=== PATIENT | male | born 1965 | race Caucasian/White ===

== ENCOUNTER 2016-04-07 11:40 | Emergency (ER) | payer OTHER ==
[~2016-04-07] VITALS: Ht 180.3 cm; Wt 108.9 kg
[~2016-04-07 11:40] MED LIST: ALBUTEROL0.09 MG/A2 IH; Albuterol Sulfat3 M1 NEB; BENADRYL50 MG PO; CORDROL20 MG PO; CYCLOBENZAPRINE5 M3 PO; DELTASONE10 MG PO; DULE1ARO1 INH; FLEXERIL10 MG PO; HYDROCODONE BIT1 T11 PO; HYDROXYZINE PAM50 MG PO; LAMICTAL25 MG PO; LAMISIL250 MG PO; LOFIBRA134 MG PO; LOPID600 MG PO; MEDROL DOSEPAK4 MG PO; Motrin,Rufen800 MG PO; NKHM PO; ONDANSETRON HYDR4 M1 PO; PREDNISONE10 MG PO; PRILOSEC20 MG PO; REMERON15 MG PO; ROBITUSSIN AC 110 ML PO; SEROQUEL400 MG PO; SPIRIVA18 MCG PO; SYMBICORT1 AE1 INH; THERA VITE M1 TAB PO; TRAZODONE HCL50 MG PO; VIBRAMYCIN100 MG PO; VICO10300 PO; ZITHROMAX TRI-500 MG PO; ZITHROMAX250 MG PO; ZYRTEC-D 5 MG-11 TE1 PO; ZYRTEC10 MG PO
[2016-04-07 11:59] VITALS: BP 118/83
[2016-04-07] MEDS ORDERED: PREDNISONE10 MG PO (13:49)
[2016-04-07] MEDS ORDERED: VIBRAMYCIN100 MG PO (13:49)
[2016-06-02] MEDS ORDERED: DOXYCYCLINE100 M3 PO (18:11)
[2016-06-02] MEDS ORDERED: PREDNISONE10 MG PO (18:11)
== END 2016-04-07 14:01 | disposition home or self-care (01) ==
LOC: ED 11:40
DX: J20.9 Acute bronchitis, unspecified (principal); F17.200 Nicotine dependence, unspecified, uncomplicated; Z88.0 Allergy status to penicillin

== ENCOUNTER → 2016-04-10 | Outpatient (CLI) | payer OTHER ==
[~2016-04-10] MED LIST changes: +DOXYCYCLINE100 M3 PO
== END ==
LOC: RAD 11:06
DX: J40 Bronchitis, not specified as acute or chronic (principal); R91.1 Solitary pulmonary nodule; Z72.0 Tobacco use

== ENCOUNTER 2016-11-06 20:30 | Emergency (ER) | payer OTHER ==
[~2016-11-06] VITALS: Ht 180.3 cm; Wt 117.9 kg
[2016-11-06 20:49] VITALS: BP 156/93
[2016-11-06] MEDS ORDERED: CLINDAMYCIN HC300 MG PO (21:05)
[2016-11-06] MEDS ORDERED: HYDROCODONE BIT1 T11 PO (21:05)
== END 2016-11-06 21:26 | disposition home or self-care (01) ==
LOC: ED 20:30
DX: T23.241A Burn of second degree of multiple right fingers (nail), including thumb, initial encounter (principal); L03.011 Cellulitis of right finger; F17.200 Nicotine dependence, unspecified, uncomplicated; Z88.0 Allergy status to penicillin; X16.XXXA Contact with hot heating appliances, radiators and pipes, initial encounter; Y93.89 Activity, other specified; Y92.69 Other specified industrial and construction area as the place of occurrence of the external cause; Y99.9 Unspecified external cause status

== ENCOUNTER → 2016-11-12 | Outpatient (CLI) | payer OTHER ==
[~2016-11-12] MED LIST changes: +CLINDAMYCIN HC300 MG PO
--- NOTE | ~2016-11-12 | WRIGHTHP ---
[place], [place] PATIENT HISTORY AND PHYSICAL EXAM NAME: RADHA HARGROVE [facility] WITH [facility] #: [id number] UNIT #: [id number] ROOM: DOCTOR: AIDA VIVAS M.D. BIRTHDATE: [birth year] DOS: 11/12/2016 CHIEF COMPLAINT: Burn to his right thumb and right first finger. HISTORY OF PRESENT ILLNESS: This is a 51-year-old male with really no past medical history who comes in with a burn that he sustained approximately 2 weeks ago. He had sustained a burn on his right thumb and his pointer finger of the right hand while he was at work. He burned it by hot steam and apparently was just taking care of it at home by himself for about a week until he came to the ER on 11/06/2016 with reports of yellow drainage and nonhealing and was given clindamycin and a script for Silvadene which he has been using. The wound still has not really gotten any better, in fact he says it is still draining. There is still pain and discomfort. There is an area on the first finger, the pointer finger, of the right hand that had a blister, but it is draining yellowish fluid coming from there according to his . Also, his did state that initially the wounds were blistered and he broke the blisters on his own and was caring for it at home before he sought medical attention. He says he is doing okay with the antibiotics. No fevers or chills are noted at this time. PAST MEDICAL HISTORY: Significant for a history of pneumonia and left wrist surgery. He is not diabetic. FAMILY HISTORY: Significant for heart disease. SOCIAL HISTORY: He is a current every day smoker, 1 pack per day and is . He works with the [employer] and was in [place] when this injury occurred. He does not drink alcohol or use drugs. ALLERGIES: HE IS ALLERGIC TO PENICILLIN. CURRENT MEDICATIONS: He is on 7 days' worth of oral clindamycin, and he was given 8 pills of hydrocodone from the Emergency Room Department. REVIEW OF SYSTEMS: No fevers or chills. He continues to have drainage. He states he thinks it looks worse than it did. It is still painful. No chest pain, shortness of breath, nausea, vomiting or diarrhea or problems with the antibiotics that he reports. PHYSICAL EXAMINATION: GENERAL: This is a well-developed, well-nourished male, in no acute distress, pleasant and cooperative. HEENT: Extraocular movements are intact. Sclerae are anicteric. NECK: There is no JVD. LUNGS: Clear. CARDIOVASCULAR: S1, S2 regular rate and rhythm. ABDOMEN: Soft and nontender. EXTREMITIES: No edema. He has his two wounds. There is a large wound on the right thumb that is measuring approximately 2.8 x 1.5 x 0.1. There is a large amount of necrotic tissue present around this wound. There is no overt cellulitis that I could see. The wound on the pointer finger of the right hand [place], [place] PATIENT HISTORY AND PHYSICAL EXAM NAME: RADHA HARGROVE UNIT #: [id number] ROOM: DOCTOR: AIDA VIVAS M.D. BIRTHDATE: [birth year] is measuring 1.3 x 0.8 x 0.1. It is a blister, but it is fluctuant and draining yellowish fluid. Debridement was done, burn debridement of both of these wounds. The tissue removed was devitalized tissue with forceps and scissors. Cetacaine spray was used for topical anesthesia. Timeout was conducted prior to the start of the procedure. The patient tolerated the procedure well. Post-debridement measurements, both the wounds are slightly different, 3.6 x 2 x 0.2 in the thumb area, the other wound is measuring 0.8 x 0.6 x 0.1. ASSESSMENT AND PLAN: Second-degree garcia of both the thumb and the first digit on the right hand. I would like to change from Silvadene to TheraHoney and apply Bactroban to the regimen as well, Adaptic to keep it from sticking to the wound, 4 x 4s and Kerlix or Darci to the wounds. He is to change it every day. I want to add Bactrim double strength 1 tablet p.o. b.i.d. as well. THE PATIENT IS ALLERGIC TO PENICILLIN. The patient is going to change dressings every day and follow back up with us in one week. AIDA BEIS, MD CM:HISPHYS:PATIENT HISTORY AND PHYSICAL EXAMINATION [id number] AIDA VIVAS M.D. 11/12/16 1120 interface
== END ==
LOC: WOUNDCARE 02:58
DX: T23.241A Burn of second degree of multiple right fingers (nail), including thumb, initial encounter (principal); T31.0 Burns involving less than 10% of body surface; Z87.01 Personal history of pneumonia (recurrent); F17.210 Nicotine dependence, cigarettes, uncomplicated; X08.8XXA Exposure to other specified smoke, fire and flames, initial encounter; Y93.89 Activity, other specified; Y92.89 Other specified places as the place of occurrence of the external cause; Y99.8 Other external cause status

== ENCOUNTER → 2016-11-19 | Outpatient (CLI) | payer OTHER ==
--- NOTE | ~2016-11-19 | PR ---
[place], [place] PROGRESS NOTE NAME: RADHA HARGROVE [facility] #: [id number] UNIT #: [id number] ROOM: DOCTOR: AIDA VIVAS M.D. BIRTHDATE: [birth year] DOS: 11/19/2016 CHIEF COMPLAINT: Follow up of burn to the right hand. HISTORY OF PRESENT ILLNESS: This is a 51-year-old male who was seen in the Wound Clinic last week for a burn of his right hand. He had a fairly large burn of his thumb as well as his second digit. He comes in without any specific complaints. He has been using TheraHoney and Adaptic without any particular new changes. There is very little drainage and no fevers or chills. The wound is still painful. PHYSICAL EXAMINATION: His vital are stable. Temperature 98.4, pulse 80, respirations 18, blood pressure is 130/86. The wound on the right thumb is measuring 3.3 x 1.2 x 0.1. It looks clean. There is much less devitalized tissue. There is a little bit of eschar still present at the tip of the wound, the tip of the forefinger, but otherwise it looks pretty good. No overt cellulitis. HOSPITAL COURSE: The area was debrided selectively with forceps and scissors just to remove the devitalized eschar. The patient tolerated the debridement well, only 5-10% of the wound was debrided. No bleeding occurred. Post-debridement measurements are 3.3 x 1.3 x 0.1. The other wound is healing nicely and is measuring 0.5 x 0.5 x 0.1. ASSESSMENT AND PLAN: Second-degree burn of the right hand, which looks good. There has not been much improvement in the wound margins yet, but it does look much body cleaner in general. Hopefully, by next week, we can change him to a different dressing such as collagen or Aquacel. Follow up in one week. AIDA VIVAS MD CM:PNTRANS [id number] AIDA VIVAS M.D. 11/19/16 2244 interface
== END | disposition home or self-care (01) ==
LOC: WOUNDCARE 03:11
DX: T23.241D Burn of second degree of multiple right fingers (nail), including thumb, subsequent encounter (principal); X08.8XXD Exposure to other specified smoke, fire and flames, subsequent encounter

== ENCOUNTER → 2016-11-26 | Outpatient (CLI) | payer OTHER ==
--- NOTE | ~2016-11-26 | PR ---
[place], [place] PROGRESS NOTE NAME: RADHA HARGROVE [facility] #: [id number] UNIT #: [id number] ROOM: DOCTOR: AIDA VIVAS M.D. BIRTHDATE: [birth year] DOS: 11/26/2016 CHIEF COMPLAINT: Follow up of burn to the right hand. HISTORY OF PRESENT ILLNESS: This is a 51-year-old male who suffered a second-degree burn of his right thumb. He has been coming to the wound clinic now for 2 weeks. He is using TheraHoney and Adaptic without any particular complaints. He says it still does hurt and still causing some tightness with trying to bend the finger. PHYSICAL EXAMINATION: VITAL SIGNS: Temperature is 98.2, pulse is 80, respirations 18, blood pressure is 142/80. SKIN: There is good granulation tissue. There is some fibrin slough present in the base of the wound. The darshan-wound has some hyperkeratotic dried devitalized tissue from the garcia still present. This area was debrided selectively with forceps and scissors. There was some moderate bleeding that was controlled with pressure and a curette was also utilized. The post-debridement measurements are the same, 3 x 1.2 x 0.1; predebridement measurements were 3 x 1.2 x 0.1. The patient tolerated the debridement well. ASSESSMENT AND PLAN: Second-degree burn of the right thumb. Overall, it looks much improved. We will continue with the current dressing and have him follow up in one week. There is no sign of infection. AIDA VIVAS MD CM:PNTRANS [phone] AIDA VIVAS M.D. 11/27/16 0057 interface
== END | disposition home or self-care (01) ==
LOC: WOUNDCARE 03:05
DX: T23.211D Burn of second degree of right thumb (nail), subsequent encounter (principal); T31.0 Burns involving less than 10% of body surface; X08.8XXD Exposure to other specified smoke, fire and flames, subsequent encounter

== ENCOUNTER → 2016-12-03 | Outpatient (CLI) | payer OTHER ==
--- NOTE | ~2016-12-03 | PR ---
[place], [place] PROGRESS NOTE NAME: RADHA HARGROVE [facility] #: [id number] UNIT #: [id number] ROOM: DOCTOR: AIDA VIVAS M.D. BIRTHDATE: [birth year] DOS: 12/03/2016 WOUND CARE PROGRESS NOTE CHIEF COMPLAINT: Followup of burn of the right hand. SUBJECTIVE: This is a 51-year-old male who has been following up in the Wound Clinic for 3 weeks now for a burn of his right hand affecting the thumb and the second digit. He has been using TheraHoney and Adaptic without any new changes. He says there is very little drainage and the wound is getting smaller. He has no specific complaints. OBJECTIVE: VITAL SIGNS: Stable. Temperature is 98.4, pulse is 84, respirations are 18, blood pressure is 148/80. The wound is measuring much smaller at 0.2 x 0.2 x 0.1, it is healing nicely. There is still a little bit of devitalized tissue notable. This area was debrided with a curette and selective debridement only. There was minimal bleeding that was controlled with pressure. Cetacaine spray was used for topical anesthesia and the post-debridement measurements are 0.6 x 0.3 x 0.1. ASSESSMENT AND PLAN: Second-degree burn of the right hand, it is definitely improving with the current treatment. We will continue with this for now and have him followup in one week, this wound should be healed by then. AIDA VIVAS MD CM:ORION [id number] AIDA VIVAS M.D. 12/04/16 1333 interface
== END | disposition home or self-care (01) ==
LOC: WOUNDCARE 03:44
DX: T23.241D Burn of second degree of multiple right fingers (nail), including thumb, subsequent encounter (principal); T31.0 Burns involving less than 10% of body surface; X08.8XXD Exposure to other specified smoke, fire and flames, subsequent encounter

== ENCOUNTER 2018-10-28 22:00 | Emergency (ER) | payer SELFPAY ==
[~2018-10-28] VITALS: Ht 180.3 cm; Wt 108.9 kg
[2018-10-28 22:03] VITALS: BP 132/80
[2018-10-28] MEDS ORDERED: DOXYCYCLINE100 M3 PO (22:40)
== END 2018-10-28 23:36 | disposition home or self-care (01) ==
LOC: ED 22:00
DX: S80.261A Insect bite (nonvenomous), right knee, initial encounter (principal); S80.862A Insect bite (nonvenomous), left lower leg, initial encounter; S80.861A Insect bite (nonvenomous), right lower leg, initial encounter; Z88.0 Allergy status to penicillin; W57.XXXA Bitten or stung by nonvenomous insect and other nonvenomous arthropods, initial encounter; Y93.89 Activity, other specified; Y92.89 Other specified places as the place of occurrence of the external cause; Y99.8 Other external cause status

== ENCOUNTER 2019-10-28 15:26 | Inpatient (IN) | payer OTHER ==
[~2019-10-28] VITALS: Ht 180.3 cm; Wt 113.9 kg
[2019-10-28 15:34] VITALS: BP 106/81
[2019-10-28 16:36] LABS: HEMATOCRIT 38.7 % (42.0-52.0); MEAN CELL VOLUME 87.6 fl (80.0-94.0); MEAN CORPUSCULAR HGB 28.5 pg (27.0-31.0); MEAN CORPUSCULAR HGB CONC 32.6 g/dl (33.0-37.0); MEAN PLATELET VOLUME 9.5 fl (9.6-12.3); PLATELET COUNT AUTOMATED 273 10*3/uL (130-400); RED BLOOD COUNT 4.42 10*6/uL (4.50-5.90); RED CELL DISTRI WIDTH 13.4 % (0-14.5); WHITE BLOOD COUNT 20.2 10*3/uL (4.8-10.8)
[2019-10-28 16:52] LABS: BURR CELLS FEW; PLATELET SUFFICIENCY NORMAL (NORMAL); TOTAL CELLS COUNTED 100 #CELLS
[2019-10-28 17:01] LABS: ALBUMIN 3.2 gm/dl (3.1-4.5); ALKALINE PHOSPHATASE 81 U/L (45-117); BUN 9 mg/dl (7-24); CHLORIDE 106 mmol/L (98-107); CREATININE 0.98 mg/dL (0.70-1.30); POTASSIUM 3.6 mmol/L (3.5-5.1); SGOT/AST 9 IU/L (3-35); SGPT/ALT 21 U/L (12-78); SODIUM 135 mmol/L (136-145); TOTAL PROTEIN 7.4 gm/dL (6.4-8.2)
[2019-10-28 18:12] VITALS: BP 110/85
--- NOTE | 2019-10-28 18:34 | NUR ---
PT TO BE TRANSFERED TO 516 AFTER SHIFT CHANGE PER NURSING WINE BOTTLE INSPECTOR. PT RESTING WITH EYES CLOSED, ANTIBOTICS IN FUSING PER ORDER. CALL LIGHT IN REACH WILL MONITOR.
--- NOTE | 2019-10-28 19:05 | NUR ---
PT TO BE ADMITTED, NO BED ASSIGNMENT OR NURSE AVAILABLE UNTIL AFTER SHIFT CHANGE PER LISANDRA RN, RECEIVED REPORT FROM
[2019-10-28 20:45] VITALS: BP 117/72
--- NOTE | 2019-10-28 20:45 | NUR ---
Time: 2044 A 54 year old M admitted to 5E under services of ARIA OWENS DO. Pt. arrived via stretcher from ER. Chief complaint: BILATERAL AXILLARY ABCESSES. LUIS E VALLES
--- NOTE | 2019-10-28 20:50 | NUR ---
REFUSED HIS PHOTOS TAKEN CHRISTOPHER ESCOBAR
--- NOTE | 2019-10-28 20:57 | NUR ---
PATIENT REFUSES PICTURES AND MEASUREMENT OF AXILLARY BILATERALLY.
--- NOTE | 2019-10-28 22:42 | NUR ---
CALLED BACK REGARDING CONSULTION. WILL SEE PATIENT IN MORNING, POSSIBLY SET UP FOR A I&D ON THURSDAY.
--- NOTE | 2019-10-28 23:26 | NUR ---
MORPHINE GIVEN FOR PAIN RATED A 8 OUT OF 10 TO BILATERAL AXILLA
[2019-10-29] VITALS: BP 107/55
--- NOTE | 2019-10-29 00:43 | NUR ---
MORPHINE EFFECTIVE, PATIENT SLEEPING COMFORTABLY IN ROOM
--- NOTE | 2019-10-29 03:00 | NUR ---
24 HR chart check completed.
--- NOTE | 2019-10-29 04:15 | NUR ---
MORPHINE GIVEN FOR PAIN IN BILATERAL AXILLAS RATED A 8 OUT OF 10
[2019-10-29 06:06] LABS: BASO % 0.2 % (0.0-1.0); EOS # 0.3 10*3/uL (0.0-0.4); EOS % 2.3 % (1.0-4.0); HEMATOCRIT 36.9 % (42.0-52.0); LYMPH # 1.6 10*3/uL (1.3-4.4); LYMPH % 12.4 % (27.0-41.0); MEAN CELL VOLUME 87.4 fl (80.0-94.0); MEAN CORPUSCULAR HGB 28.7 pg (27.0-31.0); MEAN CORPUSCULAR HGB CONC 32.8 g/dl (33.0-37.0); MEAN PLATELET VOLUME 9.9 fl (9.6-12.3); MONO % 7.7 % (3.0-9.0); NEUT # 10.1 10*3/uL (2.3-7.9); NEUT % 76.9 % (47.0-73.0); PLATELET COUNT AUTOMATED 271 10*3/uL (130-400); RED BLOOD COUNT 4.22 10*6/uL (4.50-5.90); RED CELL DISTRI WIDTH 13.4 % (0-14.5); WHITE BLOOD COUNT 13.1 10*3/uL (4.8-10.8)
[2019-10-29 06:21] LABS: BUN 11 mg/dl (7-24); CHLORIDE 107 mmol/L (98-107); CHOLESTEROL 112 mg/dL (<200); CREATININE 1.02 mg/dL (0.70-1.30); HDL CHOLESTEROL 27 mg/dl (40-60); LDL CHOLESTEROL 62 mg/dL (9-159); POTASSIUM 3.9 mmol/L (3.5-5.1); SODIUM 138 mmol/L (136-145); TRIGLYCERIDES 116 mg/dl (<150); VLDL CHOLESTEROL 23 mg/dL (6-40)
--- NOTE | 2019-10-29 07:30 | NUR ---
TOOK OVER CARE OF PT AT THIS TIME. PT RESTING IN BED. NO S/S OF DISTRESS. RESPIRATIONS EASY AND UNLABORED. CALL LIGHT IN REACH.
[2019-10-29 08:00] VITALS: BP 116/74
--- NOTE | 2019-10-29 09:16 | NUR ---
PT GIVEN MORPHINE AT THIS TIME FOR C/O BILATERAL ARMPIT PAIN. WILL MONITOR FOR EFFECTIVENESS. CALL LIGHT IN REACH.
--- NOTE | 2019-10-29 10:16 | NUR ---
MORPHINE EFFECTIVE PER PT.
[2019-10-29 12:00] VITALS: BP 107/53
--- NOTE | 2019-10-29 12:15 | NUR ---
Second Shift Supervisor in to talk to patient. Patient states lives at HOME with MOTHER. There are 12 steps in the home. Physician: NONE AT THIS TIME Pharmacy: [facility] [place] [facility] services: NONE Patient's level of ADLs: INDEPENDENT Patient has working utilities: YES DME: NONE Follow-up physician's appointment after d/c: DOES NOT HAVE PCP AT THIS TIME Does patient want to access PORTAL?: NO Discharge plan PT LIVES AT HOME WITH HIS MOTHER AND IS INDEPENDENT IN HIS CARE. DISCUSSED HOME NEEDS WITH PT BUT HE DECLINES ANY AT THIS TIME. WILL CONTINUE TO FOLLOW. PLAN IS TO RETURN HOME WITH MOTHER ON DISCHARGE. STATES HE WILL HAVE A RIDE HOME.. VIKAS ALEXANDRE
--- NOTE | 2019-10-29 14:00 | NUR ---
NEL FROM CT CALLS THIS NURSE AND STATES THAT THERE HAS BEEN A MALFUNCTION WITH CT MACHINE AND THAT SHE WAS UNABLE TO OBTAIN IMAGES OF PT BILATERAL AXILLA. CURING BIN OPERATOR STATES THAT PT IS C/O BEING HUNGRY. DR JACOBSON NOTIFIED OF THIS AND STATES THAT THIS NURSE CAN ASK PATIENT WHETHER OR NOT HE WANTS TO EAT RIGHT NOW OR WAIT FOR AN HOUR FOR CT MACHINE TO BE FIXED. PT ASKED AND STATES THAT HE WOULD LIKE TO EAT NOW AND WILL BE NPO FOR ANOTHER [address] OF AXILLA AT A LATER TIME TODAY. DIET ORDER PLACED.
--- NOTE | 2019-10-29 14:56 | NUR ---
PT GIVEN MORPHINE AT THIS TIME FOR C/O ARMPIT PAIN. RATES PAIN AN 11/13. WILL MONITOR FOR EFFECTIVENESS. CALL LIGHT IN REACH.
--- NOTE | 2019-10-29 15:56 | NUR ---
PT STATES THAT MORPHINE IS EFFECTIVE AT THIS TIME.
[2019-10-29 16:00] VITALS: BP 120/69
--- NOTE | 2019-10-29 16:19 | NUR ---
PT NOTIFIED THAT HE WILL HAVE CT OF BILATERAL AXILLA TODAY AT 1930 AND IS AWARE THAT HE IS TO BE NPO AT THIS TIME.
--- NOTE | 2019-10-29 19:56 | NUR ---
PATIENT TO BE TAKEN DOWN TO CT VIA WHEEL CHAIR
[2019-10-29 20:00] VITALS: BP 110/62
--- NOTE | 2019-10-29 20:21 | NUR ---
SMELL OF CIGARETTE SMOKE COMING FROM PTS ROOM. PT QUESTIONED IF HE WAS SMOKING AND HE STATES NO. WHEN ASKED IF HE IS A SMOKER HE STATES NO. PT HAS NO VISIBLE CIGARETTES/POLLUTION CONTROL ENGINEER. SS NOTIFIED.
--- NOTE | 2019-10-29 21:49 | NUR ---
NORCO GIVEN PER PT REQUEST FOR BLE AXILLA PAIN. AREAS ARE RED, SWOLLEN WITH PALPABLE MASSES, NO OPEN AREAS.
--- NOTE | 2019-10-29 22:40 | NUR ---
NORCO APPEARS EFFECTIVE. PT IS SLEEPING.
[2019-10-30] VITALS: BP 114/75
--- NOTE | 2019-10-30 | NUR ---
KEEPING PT NPO FOR POSSIBLE I&D
--- NOTE | 2019-10-30 06:41 | NUR ---
DR BARRON AWARE OF CT RESULTS. STATES HE WILL SEE HIM AND HE DOES NOT NEED SURGERY.
[2019-10-30 06:43] LABS: BASO % 0.3 % (0.0-1.0); EOS # 0.4 10*3/uL (0.0-0.4); EOS % 2.7 % (1.0-4.0); HEMATOCRIT 39.3 % (42.0-52.0); LYMPH # 1.7 10*3/uL (1.3-4.4); LYMPH % 11.4 % (27.0-41.0); MEAN CELL VOLUME 89.1 fl (80.0-94.0); MEAN CORPUSCULAR HGB 29.3 pg (27.0-31.0); MEAN CORPUSCULAR HGB CONC 32.8 g/dl (33.0-37.0); MEAN PLATELET VOLUME 9.5 fl (9.6-12.3); NEUT # 11.3 10*3/uL (2.3-7.9); NEUT % 77.6 % (47.0-73.0); PLATELET COUNT AUTOMATED 338 10*3/uL (130-400); RED BLOOD COUNT 4.41 10*6/uL (4.50-5.90); RED CELL DISTRI WIDTH 13.6 % (0-14.5); WHITE BLOOD COUNT 14.6 10*3/uL (4.8-10.8)
[2019-10-30 07:10] LABS: ALBUMIN 2.8 gm/dl (3.1-4.5); ALKALINE PHOSPHATASE 75 U/L (45-117); BUN 12 mg/dl (7-24); CHLORIDE 110 mmol/L (98-107); CREATININE 0.91 mg/dL (0.70-1.30); POTASSIUM 4.1 mmol/L (3.5-5.1); SGOT/AST 10 IU/L (3-35); SGPT/ALT 23 U/L (12-78); SODIUM 139 mmol/L (136-145); TOTAL PROTEIN 7.3 gm/dL (6.4-8.2)
--- NOTE | 2019-10-30 07:30 | NUR ---
PATIENT RESTING IN BED. DROWSY. VOICES NO CONCERNS. ASSESSMENT COMPLETE. VSS. RESPS EASY AND REGULAR. CALL LIGHT IN REACH. WILL MONITOR.
[2019-10-30 08:00] VITALS: BP 116/74
[2019-10-30 12:00] VITALS: BP 110/70
--- NOTE | 2019-10-30 15:31 | NUR ---
SPOKE TO FAMILY AND UPDATED ON POC.
[2019-10-30 16:00] VITALS: BP 112/65
[2019-10-30 20:00] VITALS: BP 135/81
[2019-10-31] VITALS: BP 107/63
[2019-10-31 06:47] LABS: BASO # 0.1 10*3/uL (0.0-0.1); BASO % 0.4 % (0.0-1.0); EOS # 0.4 10*3/uL (0.0-0.4); EOS % 2.9 % (1.0-4.0); HEMATOCRIT 40.3 % (42.0-52.0); LYMPH # 2.2 10*3/uL (1.3-4.4); LYMPH % 14.8 % (27.0-41.0); MEAN CELL VOLUME 88.4 fl (80.0-94.0); MEAN CORPUSCULAR HGB 28.7 pg (27.0-31.0); MEAN CORPUSCULAR HGB CONC 32.5 g/dl (33.0-37.0); MEAN PLATELET VOLUME 9.5 fl (9.6-12.3); MONO % 6.9 % (3.0-9.0); NEUT # 10.9 10*3/uL (2.3-7.9); NEUT % 73.7 % (47.0-73.0); PLATELET COUNT AUTOMATED 396 10*3/uL (130-400); RED BLOOD COUNT 4.56 10*6/uL (4.50-5.90); RED CELL DISTRI WIDTH 13.3 % (0-14.5); WHITE BLOOD COUNT 14.7 10*3/uL (4.8-10.8)
[2019-10-31 07:16] LABS: CHLORIDE 109 mmol/L (98-107); POTASSIUM 4.2 mmol/L (3.5-5.1); SODIUM 139 mmol/L (136-145)
[2019-10-31 07:17] LABS: BUN 11 mg/dl (7-24)
--- NOTE | 2019-10-31 07:30 | NUR ---
PATIENT RESTING IN BED. VOICES NO CONCERNS. ASSESSMENT COMPLETE. RESPS EASY AND REGULAR. CALL LIGHT IN REACH.
[2019-10-31 08:00] VITALS: BP 127/82
--- NOTE | 2019-10-31 08:31 | NUR ---
RADHA HARGROVE [id number] Please refer to the physician's history and physical for past medical history, comorbid conditions, and allergies. Diagnosis: AXILLARY ABSCESS José Luis Score: 23,LOW OR NO RISK WOUND DESCRIPTIONS: This nurse along with with Fartun Benavides RN evaluated patient for skin impairments. Wound Number: 1 Location of the wound: left axilla Type of wound: abscess Thickness: Partial Size: 6.5cm x 7.0cm x <0.1cm Tunneling: none Undermining: none Sinus Tract: none Presence of Exudate: none Amount: none Color: Red Odor: None Periwound Skin Appearance: erythema Wound edges: approximated Pain (associated with wound): none at time of assessment How does patient state this happened? pt states these areas started last week Wound Number: 2 Location of the wound: right axilla Type of wound: abscess Thickness: Partial Size: 12.6cm x 11.7cm x <0.1cm Tunneling: none Undermining: none Sinus Tract: none Presence of Exudate: none Amount: none Color: Red Odor: None Periwound Skin Appearance: Normal Wound edges: approximated Pain (associated with wound): none at time of assessment How does patient state this happened? pt states these areas started last week Surface the patient is resting on: Isoflex SKIN PREVENTION RECOMMENDATION: 1. Pressure redistribution support surface as appropriate 2. Elevate heels 3. Remove boots/TEDS every shift and reapply 4. Head of bed 30 degrees as tolerated 5. Assess nutrition and hydration 6. Manage moisture 7. Avoid the use of containment devices while in bed 8. Use absorptive products on surfaces limit layers of linens on bed 9. Turn and reposition every 1-2 hours in bed and every 1 hour in chair as tolerated 10. Weight shifts every 15 minutes while up in chair 11. Offloading with pillows or device to keep heels elevated off bed 12. Monitor skin at least every shift 13. Inspect under medical devices twice a day WOUND TREATMENT RECOMMENDATIONS: Dr. Dias is already on consult at this time. Warm compress QID for 15 mins or as tolerated per patient to right axilla and left axilla. Pt states he will manage these areas upon discharge.
--- NOTE | 2019-10-31 09:00 | NUR ---
case management visits with patient, he states he will return home when discharged and denies any home needs
--- NOTE | 2019-10-31 09:55 | NUR ---
24 HR chart check completed.
--- NOTE | 2019-10-31 10:42 | NUR ---
Dr. Villagran notified of wound care recommendations.
[2019-10-31] MEDS ORDERED: DOXYCYCLINE100 M3 PO (11:19)
[2019-10-31] MEDS ORDERED: VITAMIN D350 MC2 PO (11:19)
[2019-10-31 12:00] VITALS: BP 120/74
--- NOTE | 2019-10-31 13:30 | NUR ---
PATIENT REFUSED DISCHARGE WOUND PHOTOS.
--- NOTE | 2019-10-31 14:00 | NUR ---
Discharge instructions reviewed with patient/family. Patient receptive and verbalizes understanding. Follow-up care arranged. Written instructions given to patient/family. IV REMOVED. AUGIE DAWN
== END 2019-10-31 14:00 | disposition home or self-care (01) | DRG 720 ==
LOC: ED 15:26 → 5E 17:28 → EDHOLD 17:28 → 5E 18:34
PROVIDERS: Internal Medicine; Student in an Organized Health Care Education/Training Program; ADMIT Emergency Medicine
DX: A41.9 Sepsis, unspecified organism (principal); L03.112 Cellulitis of left axilla; L03.111 Cellulitis of right axilla; R65.20 Severe sepsis without septic shock; R73.9 Hyperglycemia, unspecified; D64.9 Anemia, unspecified; J44.9 Chronic obstructive pulmonary disease, unspecified; F32.9 Major depressive disorder, single episode, unspecified; E44.0 Moderate protein-calorie malnutrition; E66.9 Obesity, unspecified; F17.210 Nicotine dependence, cigarettes, uncomplicated; I25.10 Atherosclerotic heart disease of native coronary artery without angina pectoris; E83.41 Hypermagnesemia; Z68.35 Body mass index [BMI] 35.0-35.9, adult; Z82.49 Family history of ischemic heart disease and other diseases of the circulatory system; Z88.0 Allergy status to penicillin